=== PATIENT | female | born 1960 | race Caucasian/White ===

== ENCOUNTER → 2016-08-04 | Outpatient (CLI) | payer BC ==
[~2016-08-04] MED LIST: AMPICILLIN; BIOTIN5000 MCG PO; CALCIUM 600 +1 EAC4 PO; ESTRACE; ESTRACE42.5 GM VAG; KEFLEX; KRILL OIL500 MG PO; MULTI VITAMIN1 EACH PO; PERCOCET; PROSOM2 MG; VIT B-12 PO; VITAMIN C1000 M2 PO
--- NOTE | ~2016-08-04 | MY11 ---
[facility] A Service of [facility] [place] RADIOLOGY TEXT RESULTS PATIENT: CORAL BRENNAN LOCATION: [facility] : 62 UNIT #: [id number] AGE: [address]: Arielle Blue MD SEX: F ORDER DR: [id number] [facility] [address] [place], [place] [address] [id number] O MR#: [id number] Acc #: [id number] NAME: CORAL BRENNAN : 1960 SEX: F STUDY DATE/TIME: 08/04/2016 15:25 UNIT: [facility] ROOM: STUDY DESCRIPTION: MY Mammogram Screening Dig Jacob Attending Physician: Arielle Blue M.D. Ordering Physician: Arielle Blue M.D. Primary Care Physician: Fco Hartley M.D. MEDICAL IMAGING REPORT This report is preliminary unless electronic signature is present EXAM Digital screening mammogram 08/04/2016 HISTORY 56-year-old woman strong family history, mother age 42, grandmother unknown age. Prior 2 breast biopsies marked left breast. Annual screen. COMPARISON Mammograms date to 07/30/2005 with most recent 07/30/2015. FINDINGS Digital imaging of each breast was completed utilizing a two-view examination of each breast in craniocaudal and mediolateral-oblique projections. Review and interpretation of digital mammograms include a second review in conjunction with FDA-approved CAD device. There is a normal parenchymal presentation bilaterally consistent with the patient's age. There are no breast masses imaged and no parenchymal asymmetry is visualized. There are no suspicious microcalcifications and I see no focal architectural disturbance. IMPRESSION Negative screening digital mammogram. One-year followup recommended. Patients over the age of 40 are entered into a reminder system with target due date for the next mammogram. A result letter will also be sent to the patient. BIRADS: 1 Negative Dictated by... Star Gates M.D. [facility] A Service of [facility] [place] RADIOLOGY TEXT RESULTS PATIENT: CORAL BRENNAN LOCATION: [facility] : 62 UNIT #: [id number] AGE: [address]: Arielle Blue MD SEX: F ORDER DR: THIS IS AN ELECTRONICALLY VERIFIED REPORT Star Gates M.D. at 08/05/2016 11:33 AM Mae TD: 08/05/2016 09:49 JOB #: [id number] MEDICAL IMAGING REPORT Page 1 of 1 COPY
== END | disposition home or self-care (01) ==
LOC: CWCC 14:32
DX: Z12.31 Encounter for screening mammogram for malignant neoplasm of breast (principal); Z80.3 Family history of malignant neoplasm of breast; Z98.890 Other specified postprocedural states
CPT/HCPCS: G0202

== ENCOUNTER → 2016-10-13 | Day surgery (SDC) | payer BC ==
--- NOTE | ~2016-10-13 | OR ---
Unit #: [id number] #: [id number] Patient: CORAL BRENNAN [id number] [address] [place], [place] [address] [id number] O MR#: [id number] NAME: CORAL BRENNAN ROOM: Date of Procedure: 10/13/2016 Admission Date: 10/13/2016 Surgeon: Shola Farah M.D. : 1960 Attending Physician: Shola Farah M.D. Primary Care Physician: Fco Hartley M.D. OPERATIVE REPORT PREOPERATIVE DIAGNOSIS Screening colonoscopy. POSTOPERATIVE DIAGNOSIS Screening colonoscopy. PROCEDURE PERFORMED Colonoscopy to cecum. ANESTHESIA Monitored anesthesia care. FINDINGS The patient was found to have a normal colonoscopy to the cecum. SPECIMENS None. COMPLICATIONS None apparent. CONDITION The patient tolerated the procedure well. INDICATIONS FOR PROCEDURE The patient is a 56-year-old white female, who presents at this time for screening colonoscopy. DESCRIPTION OF PROCEDURE After obtaining informed consent, the patient was brought to the endoscopy suite and after adequate monitored anesthesia care was obtained, had the colonoscope placed through the anus and slowly advanced to the level of the cecum without difficulty with the lumen always in view. The cecum was normal as was the ileocecal valve. The ascending colon was normal as was the hepatic flexure, transverse colon, splenic flexure, descending colon, sigmoid colon, and rectum. No diverticula were seen. On retroflexing in the rectum to the anorectal junction, the patient was found to have no abnormalities. The scope was removed without difficulty. On digital examination, there was good sphincter tone, no masses palpable. The patient went from the endoscopy suite to recovery area in stable condition. RECOMMENDATIONS Unit #: [id number] #: [id number] Patient: CORAL BRENNAN High-fiber diet, lots of liquids, tucks or wipes p.r.n. Follow up as needed. Dictated by... Rupa Wick/zenal TD: 10/14/2016 01:11 JOB #: [id number] CC: [facility] OPERATIVE REPORT Page 1 of 1 X Shola Farah MD PROCEDURE OPERATIVE NOTE
== END | disposition home or self-care (01) ==
LOC: COPS 10:56
DX: Z12.11 Encounter for screening for malignant neoplasm of colon (principal); Z87.19 Personal history of other diseases of the digestive system; Z79.899 Other long term (current) drug therapy; Z90.710 Acquired absence of both cervix and uterus; Z98.890 Other specified postprocedural states
CPT/HCPCS: J2250